=== PATIENT | female | born 1990 | race Caucasian/White ===

== ENCOUNTER 2017-03-21 03:19 | Emergency (ER) | payer OTHER, MEDICAID ==
[~2017-03-21] VITALS: Ht 152.4 cm; Wt 68.0 kg
[~2017-03-21 03:19] MED LIST: AMOXICILLIN/CL875 MG PO; AMOXICILLIN500 MG PO; AUGMENTIN875TAB PO; BENZONATATE200 MG PO; BEYAZ PO; BIOTIN1 MG; CLINDAMYCIN150 MG PO; CONCEPT OB PO; DIFLUCAN150 MG PO; DOXYCYCL HYC100 MG PO; FLEXERIL5 MG PO; FLONASE NASAL50 MCG; FOLIC ACID1 MG PO; MACROBID100 MG PO; MEDDOSEPAK PO; MULTIVITAMI9 PO; NAPROSYN375 MG PO; NATAZIA PO; POLYTRIM OD; PROAIR HFA IN; PROBIOTIC DAILY1 CAP; RAPAFLO4 MG PO; TOBRAMYCIN0.3 % OD; VIGAMOX OD; ZITHROMAX500 MG PO
[2017-03-21] MEDS ORDERED: LORTAB 5-325 MG1 TAB PO (04:55)
[2017-03-21 05:05] VITALS: BP 121/68
== END 2017-03-21 04:55 | disposition home or self-care (01) | DRG 605 ==
LOC: ED 03:19
DX: S90.112A Contusion of left great toe without damage to nail, initial encounter (principal); W22.8XXA Striking against or struck by other objects, initial encounter

== ENCOUNTER 2017-07-27 10:01 | Emergency (ER) | payer OTHER ==
[~2017-07-27] VITALS: Ht 162.6 cm; Wt 70.0 kg
[~2017-07-27 10:01] MED LIST changes: +LORTAB 5-325 MG1 TAB PO
[2017-07-27] MEDS ORDERED: ALLEGRA180 MG PO (11:16)
[2017-07-27] MEDS ORDERED: NEXPLANON68 MG SC (11:16)
[2017-07-27 11:30] VITALS: BP 123/70
== END 2017-07-27 11:34 | disposition home or self-care (01) | DRG 951 ==
LOC: ED 10:01
DX: Z20.811 Contact with and (suspected) exposure to meningococcus (principal)